=== PATIENT | female | born 1980 | race African-American/Black ===

== ENCOUNTER 2017-10-16 06:50 | Emergency (ER) | payer OTHER ==
[~2017-10-16] VITALS: Ht 160 cm; Wt 95.3 kg
[2017-10-16] MEDS ORDERED: NORCO 5-325 TA1 EACH PO (07:53)
[2017-10-16 08:41] VITALS: BP 133/82
== END 2017-10-16 08:42 | disposition home or self-care (01) ==
LOC: ER 06:50
DX: M75.101 Unspecified rotator cuff tear or rupture of right shoulder, not specified as traumatic (principal)